=== PATIENT | male | born 1990 | race Two or more races ===

== ENCOUNTER 2020-09-03 17:11 | Emergency (ER) | payer OTHER ==
[~2020-09-03] VITALS: Ht 180.3 cm; Wt 104.3 kg
[2020-09-03 21:55] VITALS: BP 121/79
[2020-09-03] MEDS ORDERED: IBUPROFEN 800 MG TAB PO ONE (23:30)
== END 2020-09-03 23:56 | disposition home or self-care (01) ==
LOC: ER 17:11
DX: S39.012A Strain of muscle, fascia and tendon of lower back, initial encounter (principal); V49.9XXA Car occupant (driver) (passenger) injured in unspecified traffic accident, initial encounter; Y93.89 Activity, other specified; Y92.89 Other specified places as the place of occurrence of the external cause; Y99.8 Other external cause status
CPT/HCPCS: 72100